=== PATIENT | male | born 1965 | race Caucasian/White ===

== ENCOUNTER 2019-06-23 15:26 | Emergency (ER) | payer OTHER ==
[2019-06-23 15:36] VITALS: TEMP 98
[2019-06-23] MEDS ORDERED: KETOROLAC TROMETHAMINE 60 MG/2 ML VIAL IM ONE (15:49)
[2019-06-23] MEDS ORDERED: TAMSULOSIN HCL 0.4 MG CAP PO ONE (15:49)
[2019-06-23] MEDS ORDERED: KETOROLAC TROMETHAMINE 60 MG/2 ML VIAL ONE (15:55)
[2019-06-23] MEDS ORDERED: TAMSULOSIN HCL 0.4 MG CAP ONE (15:56)
[2019-06-23] MEDS ORDERED: SODIUM CHLORIDE 1,000 ML IV STA (16:10)
[2019-06-23] MEDS ORDERED: ONDANSETRON 4 MG/2 ML VIAL IVPUSH ONE (16:13)
[2019-06-23] MEDS ORDERED: ONDANSETRON 4 MG/2 ML VIAL IM ONE (16:17)
[2019-06-23] MEDS ORDERED: ONDANSETRON 4 MG/2 ML VIAL ONE (16:27)
[2019-06-23] MEDS ORDERED: ONDANSETRON *ODT* 4 MG TABLET ONE (16:33)
[2019-06-23 17:07] LABS: BASO % 1.1 % (0-2.0); EOS % 0.1 % (0-4.5); HEMATOCRIT 46.5 % (35.4-49); HEMOGLOBIN 15.7 GM/dL (11.7-16.9); LYMPH % 11.5 % (8-40); MCH 30.1 pg (25.7-33.7); MCHC 33.9 g/dl (32.0-35.9); MEAN CELL VOLUME 88.9 fl (80-96); MEAN PLT VOLUME 8.7 fl (7.5-11.1); MONO % 5.5 % (3.8-10.2); NEUT % 81.8 % (42.8-82.8); PLATELET COUNT 230 K/MM3 (134-434); RBC 5.22 M/mm3 (4.00-5.60); RDW 14.1 % (11.9-15.9); WHITE BLOOD COUNT 9.6 K/mm3 (4.0-10.0)
[2019-06-23] MEDS ORDERED: ONDANSETRON *ODT* 4 MG TABLET SL ONE (17:08)
[2019-06-23 17:09] LABS: EPI CELLS 3.7 /HPF (0-5/HPF); HYALINE CASTS 0 /lpf (0-8); PH,URINE 7.5 (5.0-8.0); URINE APPEARANCE CLEAR; URINE BACTERIA 41.6 /hpf (NEGATIVE); URINE BILIRUBIN NEGATIVE (NEGATIVE); URINE COLOR YELLOW; URINE GLUCOSE (UA) TRACE (NEGATIVE); URINE KETONE NEGATIVE (NEGATIVE); URINE LEUK ESTERASE NEGATIVE (NEGATIVE); URINE NITRITE NEGATIVE (NEGATIVE); URINE PROTEIN NEGATIVE (NEGATIVE); URINE RBC 13 /hpf (0-4); URINE UROBILINOGEN 0.2 mg/dL (0.2-1.0); URINE WBC 2 /hpf (0-5)
[2019-06-23 17:22] VITALS: BMI 29.0
[2019-06-23 17:44] LABS: ALBUMIN 4.1 g/dl (3.4-5.0); BILIRUBIN,TOTAL 0.5 mg/dL (0.2-1); BLOOD UREA NITROGEN 21.1 mg/dL (7-18); CALCIUM 8.9 mg/dL (8.5-10.1); CREATININE 1.3 mg/dL (0.55-1.3); POTASSIUM 4.1 mmol/L (3.5-5.1); TOT PROT 7.2 g/dl (6.4-8.2)
--- NOTE | 2019-06-23 18:54 | PDOC ---
History of Present Illness - General History Source: Patient Exam Limitations: No Limitations <Melinda Rehman - Last Filed: 06/23/19 18:49> <Dorita Barnes - Last Filed: 06/26/19 14:07> - General Chief Complaint: Pain, Acute Stated Complaint: R Flank Pain Time Seen by Provider: 06/23/19 16:10 Past History - Past Medical History Cardiac Disorders: Yes COPD: No HTN: Yes Hypercholesterolemia: Yes - Surgical History Cardiac Surgery: Yes (AICD) - Psycho Social/Smoking Cessation Hx Smoking History: Unknown if ever smoked Hx Alcohol Use: No Drug/Substance Use Hx: No <Melinda Rehman - Last Filed: 06/23/19 18:49> <Dorita Barnes - Last Filed: 06/26/19 14:07> - Past Medical History Allergies/Adverse Reactions: Allergies Allergy/AdvReac Type Severity Reaction Status Date / Time No Known Allergies Allergy Verified 11/11/14 16:38 Home Medications: Ambulatory Orders Oxycodone HCl/Acetaminophen [Percocet 5-325 mg Tablet] 1 tab PO Q4H PRN #20 tablet MDD 6 06/23/19 *Physical Exam - Vital Signs Last Vital Signs Temp Pulse Resp BP Pulse Ox 98.0 F 90 18 152/104 H 98 06/23/19 15:34 06/23/19 15:34 06/23/19 15:34 06/23/19 15:34 06/23/19 15:34 - Physical Exam General Appearance: Yes: Moderate Distress (due to pain) Respiratory/Chest: positive: Lungs Clear, Normal Breath Sounds. negative: Respiratory Distress Cardiovascular: positive: Regular Rhythm, Regular Rate, S1, S2. negative: Murmur Gastrointestinal/Abdominal: positive: Tender (along RLQ), Soft. negative: Distended, Guarding, Rebound, Hernia, Mass Musculoskeletal: negative: CVA Tenderness Integumentary: positive: Normal Color Neurologic: positive: Alert <Melinda Rehman - Last Filed: 06/23/19 18:49> - Vital Signs Last Vital Signs Temp Pulse Resp BP Pulse Ox 98.0 F 87 18 146/96 96 06/23/19 15:34 06/23/19 19:30 06/23/19 19:30 06/23/19 19:30 06/23/19 19:30 <Dorita Barnes - Last Filed: 06/26/19 14:07> ED Treatment Course - LABORATORY CBC & Chemistry Diagram: 06/23/19 16:53 06/23/19 16:53 - ADDITIONAL ORDERS Additional order review: Laboratory Results 06/23/19 06/23/19 16:53 16:53 Sodium 139 Potassium 4.1 Chloride 105 Carbon Dioxide 26 Anion Gap 8 BUN 21.1 H Creatinine 1.3 Est GFR (CKD-EPI)AfAm 71.69 Est GFR (CKD-EPI)NonAf 61.86 Random Glucose 136 H Calcium 8.9 Total Bilirubin 0.5 AST 25 ALT 57 Alkaline Phosphatase 124 H Total Protein 7.2 Albumin 4.1 Urine Color Yellow Urine Appearance Clear Urine pH 7.5 Ur Specific [place] 1.020 Urine Protein Negative Urine Glucose (UA) Trace Urine Ketones Negative Urine Blood 2+ H Urine Nitrite Negative Urine Bilirubin Negative Urine Urobilinogen 0.2 Ur Leukocyte Esterase Negative Urine WBC (Auto) 2 Urine RBC (Auto) 13 Urine Casts (Auto) 0 U Epithel Cells (Auto) 3.7 Urine Bacteria (Auto) 41.6 06/23/19 16:53 RBC 5.22 MCV 88.9 MCHC 33.9 RDW 14.1 MPV 8.7 Neutrophils % 81.8 Lymphocytes % 11.5 Monocytes % 5.5 Eosinophils % 0.1 Basophils % 1.1 - Medications Given in the ED: ED Medications Discontinued Medications Generic Name Dose Route Start Last Admin Trade Name Freq PRN Reason Stop Dose Admin Sodium Chloride 1,000 mls @ 1,000 mls/hr 06/23/19 16:10 06/23/19 17:00 Normal Saline - IV 06/23/19 17:09 1,000 mls/hr ASDIR STA Administration Ketorolac Tromethamine 60 mg 06/23/19 15:49 06/23/19 16:00 Toradol Injection - IM 06/23/19 15:50 60 mg ONCE ONE Administration Ondansetron HCl 4 mg 06/23/19 16:13 06/23/19 17:12 Zofran Injection IVPUSH 06/23/19 16:14 Not Given ONCE ONE Ondansetron HCl 4 mg 06/23/19 16:17 06/23/19 17:12 Zofran Injection IM 06/23/19 16:18 Not Given ONCE ONE Ondansetron HCl 4 mg 06/23/19 17:08 06/23/19 16:15 Zofran Odt - SL 06/23/19 17:09 4 mg ONCE ONE Administration Tamsulosin HCl 0.8 mg 06/23/19 15:49 06/23/19 16:00 Flomax - PO 06/23/19 15:50 0.8 mg ONCE ONE Administration <Melinda Rehman - Last Filed: 06/23/19 18:49> - LABORATORY CBC & Chemistry Diagram: 06/23/19 16:53 06/23/19 16:53 - ADDITIONAL ORDERS Additional order review: 06/23/19 16:53 Urine Culture - Final Urine - Urine Clean Catch 06/23/19 16:53 RBC 5.22 MCV 88.9 MCHC 33.9 RDW 14.1 MPV 8.7 Neutrophils % 81.8 Lymphocytes % 11.5 Monocytes % 5.5 Eosinophils % 0.1 Basophils % 1.1 - Medications Given in the ED: ED Medications Discontinued Medications Generic Name Dose Route Start Last Admin Trade Name Freq PRN Reason Stop Dose Admin Sodium Chloride 1,000 mls @ 1,000 mls/hr 06/23/19 16:10 06/23/19 17:00 Normal Saline - IV 06/23/19 17:09 1,000 mls/hr ASDIR STA Administration Ketorolac Tromethamine 60 mg 06/23/19 15:49 06/23/19 16:00 Toradol Injection - IM 06/23/19 15:50 60 mg ONCE ONE Administration Ondansetron HCl 4 mg 06/23/19 16:13 06/23/19 17:12 Zofran Injection IVPUSH 06/23/19 16:14 Not Given ONCE ONE Ondansetron HCl 4 mg 06/23/19 16:17 06/23/19 17:12 Zofran Injection IM 06/23/19 16:18 Not Given ONCE ONE Ondansetron HCl 4 mg 06/23/19 17:08 06/23/19 16:15 Zofran Odt - SL 06/23/19 17:09 4 mg ONCE ONE Administration Tamsulosin HCl 0.8 mg 06/23/19 15:49 06/23/19 16:00 Flomax - PO 06/23/19 15:50 0.8 mg ONCE ONE Administration <Dorita Barnes - Last Filed: 06/26/19 14:07> Medical Decision Making - Medical Decision Making 54-year-old male with history of hyperlipidemia, status post maker 10/2014 presents with lot right lower back pain with radiating down to his groin which started at 1030 today along with nausea. Denies ever having this type pain before. Denies fever, shortness of breath, chest pain, vomiting, diarrhea, hematuria, dysuria. Patient was noted to have a 3 mm calculus noted in the right UVJ versus within the urinary bladder Patient is more comfortable after getting IV fluids and pain medications Patient was given a strainer to help with passage of the stone No concern for infected stone Will refer to urology Repeat BP was 146/96 06/23/19 18:49 <Melinda Rehman - Last Filed: 06/23/19 18:49> - Medical Decision Making The patient was seen and evaluated in conjunction with midlevel provider under my direct supervision, ancillary studies were reviewed. I agree with the plan as outlined with PRACHI Rehman. HPI, workup/dispo as outlined. VS reviewed, + hypertensive, but also c/o pain passing kidney stone. +kidney stone noted right UVJ entering urinary bladder, en route to passing no e/o infection on prelim ua anticipate discharge, pcp/uro followup, return precautions, urine strainer 06/26/19 14:06 06/26/19 14:07 <Dorita Barnes - Last Filed: 06/26/19 14:07> Discharge - Discharge Information Problems reviewed: Yes - Admission No - Additional Discharge Information Prescription Drug Monitoring Program (I-STOP) results: I-STOP not reviewed <Melinda Rehman - Last Filed: 06/23/19 18:49> <Dorita Barnes - Last Filed: 06/26/19 14:07> - Discharge Information Clinical Impression/Diagnosis: Kidney stone on right side Condition: Improved Disposition: HOME - Additional Discharge Information Prescriptions: Oxycodone HCl/Acetaminophen [Percocet 5-325 mg Tablet] 1 tab PO Q4H PRN #20 tablet MDD 6 PRN Reason: Pain - Follow up/Referral Referrals: Jeromy Bhatia MD [Staff Physician] - 2 Days - Patient Discharge Instructions Patient Printed Discharge Instructions: DI for Kidney Stones Additional Instructions: Thank you for choosing [facility]. It was a pleasure taking care of you. You may take Motrin 600 mg every 6 hours by mouth as needed for mild to moderate pain. Take Motrin with food. For severe pain, you may take Percocet. This medication can make you constipated for which you may take over the counter Senna tablets as needed. This medication can also make you drowsy so please be cautious with driving or performing heavy physical work. Drink at least 2-3L of water daily Follow-up with urology You were given a strainer to allow passage of stone Return to the Emergency Department if your symptoms worsen or persist, you have fever, unable to pee, severe abdominal/flank pain or other concerning symptoms.
[2019-06-23 19:34] VITALS: BP 146/96; PULSE 87
== END 2019-06-23 19:59 | disposition home or self-care (01) ==
LOC: JER 15:26
PROC: 3E0333Z Introduction of Anti-inflammatory into Peripheral Vein, Percutaneous Approach (ICD-10-PCS; principal; 2019-06-23)
PROC: 3E0337Z Introduction of Electrolytic and Water Balance Substance into Peripheral Vein, Percutaneous Approach (ICD-10-PCS; 2019-06-23)
DX: N20.0 Calculus of kidney (principal); I10 Essential (primary) hypertension; Z95.810 Presence of automatic (implantable) cardiac defibrillator; I51.9 Heart disease, unspecified
CPT/HCPCS: 36415; 74176-TC; 80053; 81003; 85025; 87086; 99283-25; J7030; Q0162